=== PATIENT | male | born 1945 | race Caucasian/White ===

== ENCOUNTER 2018-05-31 10:41 | Emergency (ER) | payer OTHER ==
[~2018-05-31] VITALS: Ht 172.7 cm; Wt 96.2 kg
[~2018-05-31 10:41] MED LIST: DIABETA 1.25M1.25 M1 PO; GLUCOPHAGE1000 MG PO; LEVEMIR; LISINOPRIL10 MG PO; NEURONTIN 300300 M1 PO; NORVASC10 MG PO
[2018-05-31] MEDS ORDERED: NORCO 5-325 TA1 EACH PO (12:19)
[2018-05-31 12:36] VITALS: BP 119/52
== END 2018-05-31 12:39 | disposition home or self-care (01) ==
LOC: M.ERS 10:41
DX: S82.144A Nondisplaced bicondylar fracture of right tibia, initial encounter for closed fracture (principal); I10 Essential (primary) hypertension; E11.40 Type 2 diabetes mellitus with diabetic neuropathy, unspecified; W01.0XXA Fall on same level from slipping, tripping and stumbling without subsequent striking against object, initial encounter; Y93.89 Activity, other specified; Y92.89 Other specified places as the place of occurrence of the external cause; Y99.8 Other external cause status; Z79.899 Other long term (current) drug therapy

== ENCOUNTER → 2018-06-13 | Outpatient (CLI) | payer OTHER ==
[~2018-06-13] MED LIST changes: +NORCO 5-325 TA1 EACH PO
== END ==
LOC: M.CT 14:31
DX: M77.31 Calcaneal spur, right foot (principal); M25.861 Other specified joint disorders, right knee; M79.89 Other specified soft tissue disorders; E11.9 Type 2 diabetes mellitus without complications; I10 Essential (primary) hypertension

== ENCOUNTER 2018-10-08 18:26 | Emergency (ER) | payer OTHER ==
[~2018-10-08] VITALS: Ht 172.7 cm; Wt 99.8 kg
[2018-10-08] MEDS ORDERED: HUMALOG100 UNIT/1 SUBQ (18:39)
[2018-10-08] MEDS ORDERED: TRICOR145 MG PO (18:39)
[2018-10-08 19:24] LABS: URINE BILIRUBIN NEGATIVE (Negative); URINE BLOOD NEGATIVE (Negative); URINE CLARITY CLEAR; URINE COLOR YELLOW; URINE GLUCOSE-RANDOM 3+ (Negative); URINE KETONES NEGATIVE (Negative); URINE LEUKOCYTES-REFLEX NEGATIVE (Negative); URINE NITRITE-REFLEX NEGATIVE (Negative); URINE PROTEIN NEGATIVE (Negative); URINE SPECIFIC GRAVITY 1.015 (1.005-1.030)
[2018-10-08 19:39] LABS: ABSOLUTE BASOPHILS 0.1 thou/uL (0.0-0.2); ABSOLUTE EOSINOPHILS 0.5 thou/uL (0.0-0.7); ABSOLUTE LYMPHOCYTES 2.2 thou/uL (0.8-5.3); ABSOLUTE MONOCYTES 0.5 thou/uL (0.0-1.2); ABSOLUTE NEUTROPHILS 3.4 thou/uL (1.6-8.1); BASOPHILS 1.2 %; EOSINOPHILS 6.8 %; HEMATOCRIT 40.3 % (42.0-52.0); HEMOGLOBIN 13.8 gm/dL (14.0-18.0); LYMPHOCYTES 33.1 %; MCH 30.5 pg (26.0-34.0); MCHC 34.2 g/dL (28.0-37.0); MCV 89.2 fL (80.0-100.0); MONOCYTES 8.1 %; MPV 7.8 fl. (7.2-11.1); NUCLEATED RBCS 0 /100WBC; PLATELET COUNT* 365 thou/uL (150-400); POLYS 50.8 %; RBC 4.52 mil/uL (4.50-6.00); RDW-CV 13.9 % (10.5-14.5); WBC 6.7 thou/uL (4.0-11.0)
[2018-10-08 19:43] LABS: CALCIUM 8.4 mg/dL (8.5-10.1); CREATININE 1.3 mg/dL (0.6-1.3); POTASSIUM 4.4 mmol/L (3.5-5.1)
[2018-10-08 19:48] LABS: ALBUMIN 3.2 g/dL (3.4-5.0); MAGNESIUM 1.9 mg/dL (1.8-2.4); TOTAL BILIRUBIN 0.3 mg/dL (<0.1-1.0)
[2018-10-08 20:07] VITALS: BP 142/65
== END 2018-10-08 20:08 | disposition home or self-care (01) ==
LOC: M.ERS 18:26
PROVIDERS: Nurse Practitioner Family
DX: M79.18 Myalgia, other site (principal); I10 Essential (primary) hypertension; E11.40 Type 2 diabetes mellitus with diabetic neuropathy, unspecified; Z79.4 Long term (current) use of insulin

== ENCOUNTER 2019-08-04 19:52 | Inpatient (IN) | payer OTHER ==
[~2019-08-04] VITALS: Ht 172.7 cm; Wt 95.3 kg
[~2019-08-04 19:52] MED LIST changes: -DIABETA 1.25M1.25 M1 PO; +GLYBURIDE 5 MG T5 M1 PO; +HUMALOG100 UNIT/1 SUBQ; -LEVEMIR; +LEVEMIR100 UNIT/1 SUBQ; +TRICOR145 MG PO
[2019-08-04 20:00] VITALS: BP 157/68
[2019-08-04] MEDS ORDERED: FUROSEMIDE 20 M20 MG PO (20:03)
[2019-08-04 20:49] LABS: ABSOLUTE BASOPHILS 0.1 thou/uL (0.0-0.2); ABSOLUTE EOSINOPHILS 0.2 thou/uL (0.0-0.7); ABSOLUTE LYMPHOCYTES 1.8 thou/uL (0.8-5.3); ABSOLUTE MONOCYTES 0.6 thou/uL (0.0-1.2); ABSOLUTE NEUTROPHILS 3.8 thou/uL (1.6-8.1); BASOPHILS 1.1 %; EOSINOPHILS 2.8 %; HEMATOCRIT 37.8 % (42.0-52.0); HEMOGLOBIN 12.9 gm/dL (14.0-18.0); LYMPHOCYTES 27.8 %; MCH 29.9 pg (26.0-34.0); MCHC 34.1 g/dL (28.0-37.0); MCV 87.7 fL (80.0-100.0); MPV 7.9 fl. (7.2-11.1); NUCLEATED RBCS 0 /100WBC; PLATELET COUNT* 431 thou/uL (150-400); POLYS 59.3 %; RBC 4.31 mil/uL (4.50-6.00); RDW-CV 14.2 % (10.5-14.5); WBC 6.4 thou/uL (4.0-11.0)
[2019-08-04 20:58] LABS: CALCIUM 8.5 mg/dL (8.5-10.1); POTASSIUM 4.3 mmol/L (3.5-5.1)
[2019-08-04 21:00] LABS: PROTIME 9.9 Seconds (9.20-11.50)
[2019-08-04 21:03] LABS: ALBUMIN 3.1 g/dL (3.4-5.0); TOTAL BILIRUBIN 0.2 mg/dL (<0.1-1.0)
[2019-08-04 21:18] LABS: URINE BILIRUBIN NEGATIVE (Negative); URINE BLOOD NEGATIVE (Negative); URINE COLOR YELLOW; URINE GLUCOSE-RANDOM 3+ (Negative); URINE KETONES NEGATIVE (Negative); URINE PROTEIN NEGATIVE (Negative); URINE SPECIFIC GRAVITY 1.015 (1.005-1.030)
[2019-08-04 21:19] LABS: URINE CLARITY HAZY; URINE LEUKOCYTES-REFLEX 2+ (Negative); URINE NITRITE-REFLEX POSITIVE (Negative)
[2019-08-04 21:42] LABS: SQUAMOUS 0-3 Few /LPF (0-3); URINE WBC-REFLEX >25 Many /HPF (0-5)
[2019-08-04 21:43] LABS: CASTS None Seen /LPF (None Seen); CRYSTALS None Seen /LPF (None Seen); URINE RBC None Seen /HPF (0-2)
--- NOTE | 2019-08-04 23:43 | NUR ---
PT ADMITTED TO FLOOR PER CART ACCOMPANIED BY ER STAFF WITH BELONGINGS. ORIENTED TO ROOM AND CALL LITE. HISTORY OBTAINED AND ASSESSMENT PERFORMED, SEE ADMIT NOTES. RFA SL IV. DENIES NEED FOR PAIN MED AT THIS TIME. WILL CONTINUE TO MONITOR AND PROVIDE CARES NEEDED.CALL LITE IN EASY REACH.
[2019-08-04 23:45] VITALS: BP 138/61
[2019-08-04 23:50] VITALS: BP 130/59
--- NOTE | 2019-08-05 06:33 | NUR ---
NEW ADMIT OVERNIGHT, PT HAS RESTED WELL SINCE ADMIT. NO COMPLAINTS OF PAIN REQUIRING MEDICATION. RAC SL. NO LABS THIS MORNING. AOX4. UP INDEP TO BR TO VOID. ABLE TO USE CALL LITE AND MAKE NEEDS KNOWN.
[2019-08-05 08:00] VITALS: BP 149/59
--- NOTE | 2019-08-05 16:33 | NUR ---
SW met with pt to complete initial assessment, introduce self, and SW role. Pt alert, oriented, pleasant. Pt lives at home with and is active and independent. 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 Pt dtr Lacey is supportive. Pt does not express any dc needs. SW to remain available to assist with safe dc planning if needs arise.
[2019-08-05 16:50] VITALS: BP 103/76
--- NOTE | 2019-08-05 17:32 | NUR ---
PT A&OX4 VSS. PT CONTINUES TO TAKE MIRALAX W/ POSITIVE RESULTS. RENAL U/S SCHEDULED FOR TOMORROW. PT TO BE BLADDER SCANNED X3 THIS EVENING. IF 3RD SCAN IS GREATER THAN 250 ML, PAGE TO BE PLACED PER PHYSICIAN ORDER. PT RESTS IN BED WITH CALL LIGHT IN REACH. DENIES PAIN AT THIS TIME. IV ANTIBIOTICS TO ADDRESS DX OF UTI. PT DENIES PAIN AT THIS TIME. NO CONCERNS VOICED. WILL CONTINUE TO MONITOR.
[2019-08-05 19:45] VITALS: BP 123/72
[2019-08-06 04:38] LABS: HEMATOCRIT 36.8 % (42.0-52.0); HEMOGLOBIN 12.4 gm/dL (14.0-18.0); MCH 29.7 pg (26.0-34.0); MCHC 33.7 g/dL (28.0-37.0); MCV 88.1 fL (80.0-100.0); RBC 4.18 mil/uL (4.50-6.00); RDW-CV 14.4 % (10.5-14.5); WBC 6.3 thou/uL (4.0-11.0)
[2019-08-06 04:55] LABS: CALCIUM 8.3 mg/dL (8.5-10.1); CREATININE 1.4 mg/dL (0.6-1.3); POTASSIUM 4.3 mmol/L (3.5-5.1)
--- NOTE | 2019-08-06 05:55 | NUR ---
PT SLEPT ON AND OFF OVERNIGHT. UP AD ERIC IN ROOM, VOIDING PER URINAL FOR STAFF TO MEASURE. POST VOID RESIDUALS PERFORMED X3, 0500 VOIDED AMOUNT 500 WITH BLADDER SCAN OF 350. PT INFORMED OR ORDERS FOR PAGE CATHETER BUT REFUSED AT THIS TIME, WOULD LIKE TO DISCUSS IT WITH DR ACOSTA. EDUCATION GIVEN. PT AOX4, PLEASANT. RAC IVF INFUSING PER PUMP. RECEIVED MIRALAX EVERY 2 HOURS ORDERED-NO BMS THIS SHIFT, PT REPORTS PASSING GAS. HS ACCUCHECK 225, INSULIN GIVEN WITH SNACK. AM LABS. ABLE TO USE CALL LITE AND MAKE NEEDS KNOWN.
[2019-08-06 07:50] VITALS: BP 133/69
[2019-08-06 10:58] VITALS: BP 133/69
[2019-08-06] MEDS ORDERED: MIRALAX119 GM PO (11:47)
[2019-08-06] MEDS ORDERED: DOCUSATE SODIU100 M1 PO (11:48)
[2019-08-06] MEDS ORDERED: CIPRO500 M1 PO (11:51)
[2019-08-06 12:06] VITALS: BP 133/69
--- NOTE | 2019-08-06 12:55 | NUR ---
PT A&OX4 VSS. PT UP AD ERIC AND WALKING AROUND UNIT AT TIMES. GAIT STEADY. PT DENIES PAIN AT THIS TIME. PT DENIES DIFFICULTY URINATING AT THIS TIME. PT STATES UNDERSTANDING OF DC INSTRUCTIONS AND RX INFORMATION PROVIDED. PT IV DC'D PRIOR TO LEAVING UNIT. NO REDNESS/SWELLING NOTED AT SITE. PT LEAVES UNIT IN WC.
== END 2019-08-06 12:40 | disposition home or self-care (01) | DRG 689 ==
LOC: M.ERS 19:52 → M.TBA-ER 22:23 → M.3W 22:23
PROVIDERS: Emergency Medicine; Family Medicine; ADMIT Internal Medicine
DX: N39.0 Urinary tract infection, site not specified (principal); N17.0 Acute kidney failure with tubular necrosis; E78.5 Hyperlipidemia, unspecified; E66.9 Obesity, unspecified; I10 Essential (primary) hypertension; K59.00 Constipation, unspecified; E11.40 Type 2 diabetes mellitus with diabetic neuropathy, unspecified; Z79.899 Other long term (current) drug therapy; Z79.84 Long term (current) use of oral hypoglycemic drugs; Z90.49 Acquired absence of other specified parts of digestive tract; Z68.31 Body mass index [BMI] 31.0-31.9, adult

== ENCOUNTER → 2019-10-23 | Outpatient (CLI) | payer MEDICARE ==
[~2019-10-23] MED LIST changes: +CIPRO500 M1 PO; +DOCUSATE SODIU100 M1 PO; +FUROSEMIDE 20 M20 MG PO; +MIRALAX119 GM PO
== END ==
LOC: M.MRI 07:09
DX: M47.816 Spondylosis without myelopathy or radiculopathy, lumbar region (principal); M51.25 Other intervertebral disc displacement, thoracolumbar region; M51.26 Other intervertebral disc displacement, lumbar region; M48.061 Spinal stenosis, lumbar region without neurogenic claudication; M12.88 Other specific arthropathies, not elsewhere classified, other specified site; M46.06 Spinal enthesopathy, lumbar region

== ENCOUNTER 2020-03-17 16:51 | Inpatient (IN) | payer MEDICARE ==
[~2020-03-17] VITALS: Ht 170.2 cm; Wt 94.9 kg
[2020-03-17 17:02] VITALS: BP 169/85; BP 19/85
[2020-03-17 17:24] LABS: ABSOLUTE BASOPHILS 0.1 thou/uL (0.0-0.2); ABSOLUTE EOSINOPHILS 0.3 thou/uL (0.0-0.7); ABSOLUTE MONOCYTES 0.5 thou/uL (0.0-1.2); BASOPHILS 0.7 %; EOSINOPHILS 3.5 %; HEMATOCRIT 37.7 % (42.0-52.0); HEMOGLOBIN 13.2 gm/dL (14.0-18.0); MCH 31.2 pg (26.0-34.0); MCHC 35.1 g/dL (28.0-37.0); MONOCYTES 6.2 %; NUCLEATED RBCS 0 /100WBC; PLATELET COUNT* 360 thou/uL (150-400); POLYS 63.6 %; RBC 4.24 mil/uL (4.50-6.00); RDW-CV 14.3 % (10.5-14.5); WBC 7.8 thou/uL (4.0-11.0)
[2020-03-17 17:33] LABS: CALCIUM 8.1 mg/dL (8.5-10.1); CREATININE 1.7 mg/dL (0.6-1.3); INR 0.9; POTASSIUM 4.9 mmol/L (3.5-5.1); PROTIME 9.6 Seconds (9.20-11.50)
[2020-03-17 17:44] LABS: ALBUMIN 3.1 g/dL (3.4-5.0); TOTAL BILIRUBIN 0.3 mg/dL (<0.1-1.0); TOTAL PROTEIN 6.7 g/dL (6.4-8.2)
[2020-03-17 19:15] LABS: URINE BILIRUBIN NEGATIVE (Negative); URINE BLOOD NEGATIVE (Negative); URINE CLARITY CLEAR; URINE COLOR YELLOW; URINE GLUCOSE-RANDOM 1+ (Negative); URINE KETONES NEGATIVE (Negative); URINE LEUKOCYTES-REFLEX NEGATIVE (Negative); URINE NITRITE-REFLEX NEGATIVE (Negative); URINE PROTEIN NEGATIVE (Negative); URINE SPECIFIC GRAVITY 1.025 (1.005-1.030); URINE UROBILINOGEN 0.2 E.U./dl (0.2-1.0)
--- NOTE | 2020-03-17 22:14 | NUR ---
PATIENT STATES HE IS CONCERNED ABOUT HIS INSULIN ADMINISTRATION BECAUSE HIS BLOOD GLUCOSE WAS 178 AND THAT HE HAD NOT EATEN. PATIENT PROVIDED WITH FOOD AND FLUIDS PATIENT AGREED TO TAKE THE INSULIN AFTER HE ATE.
[2020-03-17 23:01] VITALS: BP 134/77
[2020-03-18 04:39] LABS: HEMATOCRIT 37.1 % (42.0-52.0); HEMOGLOBIN 12.7 gm/dL (14.0-18.0); MCH 30.6 pg (26.0-34.0); MCHC 34.2 g/dL (28.0-37.0); MCV 89.2 fL (80.0-100.0); MPV 8.1 fl. (7.2-11.1); RBC 4.15 mil/uL (4.50-6.00); RDW-CV 14.7 % (10.5-14.5); WBC 7.7 thou/uL (4.0-11.0)
[2020-03-18 05:00] LABS: ALBUMIN 2.9 g/dL (3.4-5.0); ALKALINE PHOSPHATASE 89 U/L (46-116); ANION GAP 8 mmol/L (7-16); BUN 25 mg/dL (7-18); CALCIUM 8.1 mg/dL (8.5-10.1); CHLORIDE 106 mmol/L (98-107); CHOLESTEROL 211 mg/dL (<200); CO2 24 mmol/L (21-32); CREATININE 1.6 mg/dL (0.6-1.3); GLUCOSE 86 mg/dL (70-99); HDL CHOLESTEROL 31 mg/dL (>40); MAGNESIUM 1.8 mg/dL (1.8-2.4); POTASSIUM 4.3 mmol/L (3.5-5.1); SGOT 11 U/L (15-37); SGPT 19 U/L (30-65); SODIUM 138 mmol/L (136-145); TC:HDL 6.8 Ratio (Not establshd); TOTAL BILIRUBIN 0.3 mg/dL (<0.1-1.0); TOTAL PROTEIN 6.4 g/dL (6.4-8.2); TRIGLYCERIDE 514 mg/dL (<150); VLDL 103 mg/dL (<40)
[2020-03-18 05:06] LABS: SERUM ASSESSMENT Clear
[2020-03-18 08:00] VITALS: BP 143/64
--- NOTE | 2020-03-18 10:16 | EKG ---
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 : 1945 Requested By: Hever Garcia Order Number: [id number] MD: Cruzito Bird Measurements Intervals [place] Rate: 69 P: ME: QRS: -63 QRSD: 145 T: -10 QT: 402 QTc: 431 Interpretive Statements Atrial fibrillation RBBB and LAFB Compared to ECG 11/20/2012 08:19:32 Left anterior fascicular block now present Right bundle-branch block now present Sinus rhythm no longer present Electronically Signed On 03-18-2020 10:15:47 CDT by Cruzito Bird [email or web address] <ELECTRONICALLY SIGNED> By: Cruzito Bird MD, FACC 03/18/20 1015 1704 1704 Cruzito Bird MD, [facility] /EPI
[2020-03-18 12:41] VITALS: BP 165/67
--- NOTE | 2020-03-18 15:31 | NUR ---
Pt is A&O. Resides at home with his . [employer]. No DME. No hx of HH. Hx of [facility] at [facility]. Rehab consulted. Per neuro, plan to observe for a few more days. Pt's goal is to return home at pr. Following.
--- NOTE | 2020-03-18 16:13 | 2DMMODE ---
[place] [address] 2 D/M-MODE ECHOCARDIOGRAM Name: VEE ROLLE Room: [address] IN M.R.#: [id number] Admission: 03/18/20 Attend Phys: Alyse Mcdaniel, Discharge: Date of : 41 Date of Service: 03/18/20 1612 Report #: [id number] THIS REPORT FOR: cc: Arjun Negro, Arjun Bird,Cruzito Zapata MD [facility] ~ APPROVED REPORT Study performed: 03/18/2020 12:52:21 EXAM: Comprehensive 2D, Doppler, and color-flow Echocardiogram Patient Location: In-Patient BSA: 2.11 HR: 62 bpm BP: 134/77 mmHg Other Information Study Quality: Fair Indications CVA/TIA Echo Enhancing Agent Indication: Rule out Shunt Agent(s) / Amount(s) Used: Agitated Saline cc 2D Dimensions IVSd: 15.22 (7-11mm) LVOT Diam: 19.51 (18-24mm) LVDd: 45.84 mm PWd: 12.95 (7-11mm) Ascending Ao: 30.15 (22-36mm) LVDs: 30.74 (25-40mm) Aortic Root: 28.89 mm Volumes Left Atrial Volume (Systole) LA ESV Index: 21.90 mL/m2 Aortic Valve AoV Peak Donald.: 1.41 m/s AO Peak Gr.: 7.97 mmHg LVOT Max P.87 mmHg AO Mean Gr.: 4.69 mmHg LVOT Mean P.12 mmHg LVOT Max V: 0.98 m/s AO V2 VTI: 31.90 cm LVOT Mean V: 0.69 m/[place] [address] 2 D/M-MODE ECHOCARDIOGRAM Name: VEE ROLLE Room: [address] IN ..#: [id number] Admission: 03/18/20 Attend Phys: Alyse Mcdaniel, Discharge: Date of : 41 Date of Service: 03/18/20 1612 Report #: [id number] AMANDA (VTI): 2.24 cm2 LVOT V1 VTI: 23.87 cm Mitral Valve E/A Ratio: 1.17 MV Decel. Time: 124.32 ms MV E Max Donald.: 0.81 m/s MV PHT: 36.05 ms MVA (PHT): 6.10 cm2 TDI E/Lateral E': 7.36 E/Medial E': 9.00 Medial E' Donald.: 0.09 m/s Lateral E' Donald.: 0.11 m/s Pulmonary Valve PV Peak Donald.: 0.92 m/s PV Peak Gr.: 3.41 mmHg Tricuspid Valve RAP Estimate: 5.00 mmHg TR Peak Gr.: 31.61 mmHg RVSP: 36.61 mmHg PA Pressure: 36.61 mmHg Left Ventricle The left ventricle is normal size. There is normal LV segmental wall motion. Mild concentric left ventricular hypertrophy. Left ventricular systolic function is normal. The left ventricular ejection fraction is within the normal range. LVEF is 60-65%. Right Ventricle The right ventricle is normal size. The right ventricular systolic function is normal. Atria The left atrium size is normal. Interatrial septum not well visualized. Injection of bubbles documented no interatrial shunt. The right atrium size is normal. Aortic Valve The Aortic valve is sclerotic. No aortic regurgitation is present. There is no aortic valvular stenosis. Mitral Valve Mitral valve leaflets are mildly thickened. Mild mitral regurgitation. No evidence of mitral valve stenosis. [place] [address] 2 D/M-MODE ECHOCARDIOGRAM Name: VEE ROLLE Jeronimo Room: [address] IN [facility]#: [id number] Admission: 03/18/20 Attend Phys: Alyse Mcdaniel, Discharge: Date of : 41 Date of Service: 03/18/20 1612 Report #: [id number] The tricuspid valve is normal in structure. Trace tricuspid regurgitation. estimated pa pressure 40 mm Hg Pulmonic Valve Pulmonic valve is not well visualized. There is no pulmonic valvular regurgitation. Great Vessels The aortic root is normal in size. IVC is not well visualized. Pericardium There is no pericardial effusion. <Conclusion> Mild concentric left ventricular hypertrophy. LVEF is 60-65%. Interatrial septum not well visualized. Injection of bubbles documented no interatrial shunt. The Aortic valve is sclerotic. Mild mitral regurgitation. Trace tricuspid regurgitation. estimated pa pressure 40 mm Hg <ELECTRONICALLY SIGNED> By: Cruzito Bird MD, FACC 03/18/20 161 161 11 Cruzito Bird MD, FACC /INF
[2020-03-18 19:45] VITALS: BP 116/43
[2020-03-19] VITALS: BP 138/54
[2020-03-19 04:12] LABS: GLYCOHEMOGLOBIN (HGB A1C) 7.9 % (4.8-5.6)
[2020-03-19 04:38] VITALS: BP 136/71
--- NOTE | 2020-03-19 04:48 | NUR ---
ASSUMED PT CARE AT 1915. NURSING ASSESSMENT COMPLETED THIS SHIFT. PT VOICED NO CONCERNS THIS SHIFT. SR/SB 1D AND BBB ON ELECTRONIC TECH. HOURLY ROUNDING COMPLETED. CPAP AT BEDSIDE FOR USE AT HS. CALL LIGHT WITHIN REACH.
[2020-03-19 08:00] VITALS: BP 136/64
--- NOTE | 2020-03-19 10:11 | NUR ---
Per PT, Pt is close to baseline and is safe to return home. PT recommending outpt, per Pt is has a $40 copay that he can't afford and he states that HH is a waste of time. Pt to dc to home, no needs.
[2020-03-19] MEDS ORDERED: FENOFIBRATE150 MG PO (12:32)
[2020-03-19 13:28] VITALS: BP 120/54
[2020-03-19] MEDS ORDERED: LIPITOR 40 MG T40 M1 PO (15:57)
[2020-03-19] MEDS ORDERED: PIOGLITAZONE15 MG PO (15:57)
[2020-03-19] MEDS ORDERED: ASPIRIN325 PO (15:57)
[2020-03-19 17:46] VITALS: BP 120/54
--- NOTE | 2020-03-24 12:39 | CON ---
[address] [address] CONSULTATION Name: VEE ROLLE Room: [address] IN M.R.#: [id number] Admission: 03/18/20 Attend Phys: Alyse Mcdaniel MD Discharge: 03/19/20 Date of : 41 Report #: [id number] THIS REPORT FOR: //name// cc: Arjun Negro Karl ~ THIS REPORT FOR: //name// CC: Arjun Mcdaniel DATE OF SERVICE: 03/18/2020 HISTORY OF PRESENT ILLNESS: A 74-year-old male patient who was evaluated by me for slurred speech. The patient was discussed with Dr. Mcdaniel. He provided history. He is getting an echocardiogram. His notes were reviewed and his imaging study was reviewed. The patient had some speech difficulty as well as ataxia. He was outside the window for any tPA as I understand when he came in. He has improved some, but he does not think he is back to his baseline. REVIEW OF SYSTEMS: Indicate he had hernia repair. He had a pretty massive back surgery after trauma. He had some surgery on his pelvis. So, looks like the right leg has been weak. He has a history of diabetes, hypertension, neuropathy, cholecystectomy. That was his relevant 14-point review of system. PAST MEDICAL HISTORY: Positive for stroke or TIA, but history is very poor in that regard. FAMILY HISTORY: Unremarkable. SOCIAL HISTORY: He does not smoke or drink any alcohol. PHYSICAL EXAMINATION: Indicates that he is alert, responsive, able to follow simple and complex command. His speech is somewhat slurred, but his neuromuscular examination is unremarkable except in the right leg, which is old and is because of trauma there. His cardiac and respiratory examination appears noncontributory. LABORATORY DATA: His GFR is somewhat low. His carotid Doppler is pending. 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 His MRA is clean. His carotid Doppler is pending. We will get an echo and he needs rehab consult. That is already ordered. He should be on a combination of aspirin and Plavix and we will evaluate rest of the workup. He may need to go to rehab, but he may need some spine workup to [place] [address] CONSULTATION Name: VEE ROLLE Room: [address]#: [id number] Admission: 03/18/20 Attend Phys: Alyse Mcdaniel MD Discharge: 03/19/20 Date of : 41 Report #: [id number] About 50 minutes of time was spent taking care of this patient today and majority of that time was spent coordinating and counseling. <ELECTRONICALLY SIGNED> By: Jose R Barnes MD 03/24/20 1239 1431 1911Pgiovanni Barnes MD /eitan
--- NOTE | 2020-03-25 14:05 | NUR ---
During P2P Dr April BHAGAT would not approve Inpatient rate but approved observation. After JUNIOR PROJECT COORDINATOR review and Discussion in Revenue Cycle Call, CBO to bill for Observation.
== END 2020-03-19 18:30 | disposition home or self-care (01) | DRG 66 ==
LOC: M.ERS 16:51 → M.2W 17:47 → M.TBA 17:47 → M.TBA-ER 21:26 → M.2W 22:33
PROVIDERS: Family Medicine; ADMIT Internal Medicine; ATTEND Internal Medicine
DX: I63.89 Other cerebral infarction (principal); I65.22 Occlusion and stenosis of left carotid artery; E11.40 Type 2 diabetes mellitus with diabetic neuropathy, unspecified; Z90.49 Acquired absence of other specified parts of digestive tract; Z79.899 Other long term (current) drug therapy; E88.09 Other disorders of plasma-protein metabolism, not elsewhere classified; E11.22 Type 2 diabetes mellitus with diabetic chronic kidney disease; I12.9 Hypertensive chronic kidney disease with stage 1 through stage 4 chronic kidney disease, or unspecified chronic kidney disease; N18.3 Chronic kidney disease, stage 3 (moderate)

== ENCOUNTER → 2020-08-31 | Outpatient (CLI) | payer MEDICARE ==
[~2020-08-31] MED LIST changes: +ASA81BEC PO; +ASPIRIN325 PO; +FENOFIBRATE150 MG PO; +LIPITOR 40 MG T40 M1 PO; +PIOGLITAZONE15 MG PO
[2020-08-31 10:35] LABS: ABSOLUTE EOSINOPHILS 0.4 thou/uL (0.0-0.7); ABSOLUTE LYMPHOCYTES 1.9 thou/uL (0.8-5.3); ABSOLUTE MONOCYTES 0.5 thou/uL (0.0-1.2); ABSOLUTE NEUTROPHILS 4.3 thou/uL (1.6-8.1); BASOPHILS 0.1 %; EOSINOPHILS 5.2 %; HEMATOCRIT 41.5 % (42.0-52.0); LYMPHOCYTES 26.8 %; MCH 30.1 pg (26.0-34.0); MCHC 33.8 g/dL (28.0-37.0); MONOCYTES 7.1 %; MPV 7.7 fl. (7.2-11.1); NUCLEATED RBCS 0 /100WBC; PLATELET COUNT* 318 thou/uL (150-400); POLYS 60.8 %; RBC 4.66 mil/uL (4.50-6.00); RDW-CV 14.3 % (10.5-14.5); WBC 7.1 thou/uL (4.0-11.0)
[2020-08-31 11:01] LABS: APTT 28.4 Seconds (25.0-31.3); PROTIME 10.3 Seconds (9.20-11.50)
[2020-08-31 11:04] LABS: ALBUMIN 3.5 g/dL (3.4-5.0); CALCIUM 8.4 mg/dL (8.5-10.1); CREATININE 1.4 mg/dL (0.6-1.3); POTASSIUM 4.4 mmol/L (3.5-5.1); TOTAL BILIRUBIN 0.5 mg/dL (<0.1-1.0); TOTAL PROTEIN 7.6 g/dL (6.4-8.2)
[2020-08-31 11:33] LABS: ESR (SEDRATE) 19 mm/hr (0-20)
== END ==
LOC: M.LAB 09:30
PROVIDERS: ATTEND Orthopaedic Surgery
DX: Z01.812 Encounter for preprocedural laboratory examination (principal); Z20.828 Contact with and (suspected) exposure to other viral communicable diseases; M17.11 Unilateral primary osteoarthritis, right knee

== ENCOUNTER 2020-09-06 09:33 | Observation (INO) | payer MEDICARE ==
[~2020-09-06] VITALS: Ht 170.2 cm; Wt 98.9 kg
--- NOTE | ~2020-09-06 | OP ---
[address] [address] OPERATIVE REPORT Name: JENNAJacquelynVEE Room: [address] IN M.R.#: [id number] Admission: 09/06/20 Attend Phys: Tori Larios Discharge: Date of : 41 Report #: [id number] THIS REPORT FOR: //name// cc: ANJUM NAVARRO Physician not on staff ~ CC: ANJUM NAVARRO Physician staff Miguel Kenny DICTATED BY: Mandeep Arellano DO DATE OF SERVICE: 09/06/2020 PREOPERATIVE DIAGNOSIS: Right knee degenerative joint disease. POSTOPERATIVE DIAGNOSIS: Right knee degenerative joint disease. PROCEDURE: Right total knee arthroplasty. IMPLANTS: Biomet Vanguard total knee system utilizing the following components: 1. Size 67.5 mm right CR cemented femur. 2. Size 79 mm cemented tibial plate. 3. 34 mm asymmetrical cemented patella. 4. A 10 mm Vivacit-E anterior stabilized poly. 5. Two bags of Biomet cement. SURGEON: Miguel Busch DO ASSISTANTS: 1. Janae Noriega PA-C 2. Mandeep Arellano DO ANESTHESIA: General and regional block by Anesthesia. FLUIDS: Crystalloid per Anesthesia. ESTIMATED BLOOD LOSS: 200 mL. DRAINS: None. SPECIMENS: None. COMPLICATIONS: None. CONDITION: Stable to PACU. [address] [address] OPERATIVE REPORT Name: VEE ROLLE Room: [address] IN [facility]#: [id number] Admission: 09/06/20 Attend Phys: Tori Larios Discharge: Date of : 41 Report #: [id number] DISPOSITION: Recovery in PACU and transferred to the floor. ANTIBIOTICS: 2 grams Ancef IV preop. TOURNIQUET: 15 minutes at 250 mmHg. INDICATIONS: The patient is a very pleasant 75-year-old male with end-stage osteoarthritis of the right knee. His pain was affecting his activities of daily living. We discussed total knee arthroplasty as he had failed conservative measures. The risks, benefits, alternatives and complications were discussed at length and he is agreeable to proceed. DESCRIPTION OF PROCEDURE: The patient was met in the preoperative area. The correct site was marked. He was transferred to the operative suite after obtaining informed consent, both verbally and written. He was placed supine on the operative table. He was given the benefit of general anesthesia. The right lower extremity was then prepped and draped in normal sterile fashion. Timeout was performed to identify the correct patient, procedure and operative site. All in the room were in agreement. The procedure began with an anterior midline incision. Sharp dissection was carried down to the level of the capsule, at which point a new knife was used to perform a standard medial parapatellar arthrotomy. The patella was then everted and the knee was hyperflexed. The drill was used to gain access to the intramedullary canal of the femur. The intramedullary cutting guide was then placed and secured in place. The distal femur cut was then made, taking 2 extra millimeters given a flexion contracture. We then turned our attention to the proximal tibial cut. The extramedullary tibial guide was placed, aligning this with the tibial crest in the center of the proximal tibia and the center of the talus and the second ray. Appropriate slope was dialed in. We then made our proximal tibial cut. The 10 block was then placed and showed adequate balance in extension. We did at this point, plan for a medial release with an 18-gauge needle, which was done after the femur bone cuts were made. We then used the AP sizer to sized the femoral component. The correct cutting block was placed and secured, after which we made our anterior, posterior and chamfer cuts. The trial tibia was malleted into place with the correct rotation using the alignment a drop dayday. We then placed the trial femur. The 10 poly trial was placed and found to have good balance with flexion and extension and good range of motion. There is full extension. We performed a small release with an 18-gauge needle by crusting the MCL. This was then determined to have good balance in flexion and extension. There was no instability. We then cut the patella in freehand fashion. This was then sized and drilled. We then drilled the 2 pegs for the femur. The trial components were removed except for the tibial component, which were used for the reamer and keel punch. Trial components were then removed. We elevated the tourniquet at this point, for about 15 minutes due to need for blood control. We then thoroughly irrigated the bony ends. [place] [address] OPERATIVE REPORT Name: VEE ROLLE Room: [address] IN M.R.#: [id number] Admission: 09/06/20 Attend Phys: Tori Larios Discharge: Date of : 41 Report #: [id number] injected. Cement was mixed on the back table with 1 gram of vancomycin powder mixed in. Cement was placed on the backside of the final components and on the bony ends. This was pressed into the interstices. We then placed all final components including the tibia, femur, and patellar button. The 10 trial poly was found to have good range of motion and balance. We then elected to place the final size 10 anterior stabilized poly. The bar was placed with the tray bar branch assistant. This was confirmed to be in place with a palpable and audible click. The knee was then placed in 90 degrees of flexion. The wound was then thoroughly irrigated. We then closed the capsule with #1 Vicryl in ijwczw-[id number] fashion followed by a #1 Stratafix running. We then used 2-0 Monocryl in simple interrupted inverted fashion to reapproximate the dermal tissue followed by a 3-0 Stratafix and the subcuticular tissue. We then applied Exofin glue and a sterile Mepilex dressing, SUNG hose and calf pumps were applied. He was transferred to the PACU in stable condition after being extubated by anesthesia. All needle and sponge counts were correct x 2 at the end of the case. Dr. Busch was present and scrubbed throughout all critical aspects of the case. By: [id number] Busch DO /nt
[2020-09-06 15:09] VITALS: BP 139/74
[2020-09-07] VITALS (7 sets, daily range): BP systolic 90–150; BP diastolic 37–70
[2020-09-07 05:22] LABS: HEMATOCRIT 27.6 % (42.0-52.0); HEMOGLOBIN 9.6 gm/dL (14.0-18.0); MCH 30.7 pg (26.0-34.0); MCHC 34.7 g/dL (28.0-37.0); MCV 88.7 fL (80.0-100.0); RBC 3.11 mil/uL (4.50-6.00); RDW-CV 14.1 % (10.5-14.5); WBC 10.5 thou/uL (4.0-11.0)
[2020-09-07 05:38] LABS: ALBUMIN 2.1 g/dL (3.4-5.0); CALCIUM 7.4 mg/dL (8.5-10.1); CREATININE 1.8 mg/dL (0.6-1.3); MAGNESIUM 1.6 mg/dL (1.8-2.4); POTASSIUM 4.5 mmol/L (3.5-5.1); TOTAL BILIRUBIN 0.3 mg/dL (<0.1-1.0); TOTAL PROTEIN 4.4 g/dL (6.4-8.2)
[2020-09-07 12:25] LABS: URINE BILIRUBIN NEGATIVE (Negative); URINE BLOOD NEGATIVE (Negative); URINE CLARITY CLEAR; URINE COLOR YELLOW; URINE GLUCOSE-RANDOM 2+ (Negative); URINE KETONES NEGATIVE (Negative); URINE LEUKOCYTES-REFLEX NEGATIVE (Negative); URINE NITRITE-REFLEX NEGATIVE (Negative); URINE PROTEIN NEGATIVE (Negative); URINE UROBILINOGEN 0.2 E.U./dl (0.2-1.0)
[2020-09-08 02:06] LABS: GLYCOHEMOGLOBIN (HGB A1C) 7.9 % (4.8-5.6)
[2020-09-08 05:23] LABS: HEMATOCRIT 29.2 % (42.0-52.0); MCH 30.1 pg (26.0-34.0); MCHC 34.1 g/dL (28.0-37.0); MCV 88.3 fL (80.0-100.0); MPV 7.9 fl. (7.2-11.1); RBC 3.31 mil/uL (4.50-6.00); RDW-CV 14.3 % (10.5-14.5); WBC 7.6 thou/uL (4.0-11.0)
[2020-09-08 05:38] LABS: CALCIUM 8.3 mg/dL (8.5-10.1); CREATININE 1.6 mg/dL (0.6-1.3); POTASSIUM 4.4 mmol/L (3.5-5.1)
[2020-09-08 05:40] LABS: ALBUMIN 2.6 g/dL (3.4-5.0); CALCIUM 8.4 mg/dL (8.5-10.1); CREATININE 1.5 mg/dL (0.6-1.3); PHOSPHORUS* 2.7 mg/dL (2.5-4.9); POTASSIUM 4.4 mmol/L (3.5-5.1)
[2020-09-08 07:25] VITALS: BP 156/48
[2020-09-08 12:37] VITALS: BP 130/70
[2020-09-08] MEDS ORDERED: CLARITIN10 M2 PO (14:06)
[2020-09-08] MEDS ORDERED: ELIQUIS5 MG PO (14:07)
[2020-09-08] MEDS ORDERED: OXYCODONE HCL 55 MG PO (14:08)
[2020-09-08] MEDS ORDERED: ASPIRIN325 PO (14:09)
[2020-09-08 14:11] VITALS: BP 130/70
[2020-09-08 15:16] VITALS: BP 130/70
--- NOTE | 2020-09-09 09:27 | CON ---
[address] [address] CONSULTATION Name: VEE ROLLE Room: [address] Juan Jose Bentley#: [id number] Admission: 09/06/20 Attend Phys: Tori Larios Discharge: 09/08/20 Date of : 41 Report #: [id number] THIS REPORT FOR: cc: ANJUM NAVARRO Physician not on staff ~ Nadya Durand MD DATE OF SERVICE: 09/08/2020 NEPHROLOGY CONSULTATION CONSULTING PHYSICIAN: Dr. Loredo. REASON FOR NEPHROLOGY CONSULTATION: Elevated creatinine. REASON FOR ADMISSION: Right knee DJD. HISTORY OF PRESENT ILLNESS: This is a 75-year-old male who has a history of diabetes type 2, dyslipidemia and hypertension, who came in for right knee surgery. He underwent right total knee arthroplasty on 09/06/2020 and has been doing well from that perspective. His creatinine was 1.8 on admission and 1.6 today and his baseline creatinine is 1.4-1.6. 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 He has no complaints at the moment. He does use NSAID intermittently at home. ALLERGIES: No known allergies. REVIEW OF SYSTEMS: As mentioned in the history of present illness, otherwise 10-point review of systems done, negative. HOME MEDICATIONS: Include atorvastatin, Actos, metformin, furosemide, fenofibrate, glyburide, insulin detemir, aspirin 81 and Levemir. PAST MEDICAL AND SURGICAL HISTORY: Includes hernia repair, right knee surgery, back surgery, right wrist surgery, broken pelvis, diabetes mellitus type 2, hypertension, neuropathy, chronic kidney disease stage 3B, laparoscopic cholecystectomy. FAMILY HISTORY: Hypertension. SOCIAL HISTORY: Does not smoke, drink alcohol or use illicit drugs and lives at home. PHYSICAL EXAMINATION: VITAL SIGNS: His blood pressure is 156/48, respiratory rate is 18, [place] [address] CONSULTATION Name: VEE ROLLE Room: [address]#: [id number] Admission: 09/06/20 Attend Phys: Tori Larios Discharge: 09/08/20 Date of : 41 Report #: [id number] is 78, temperature 36.8 and pulse ox 97% on room air. GENERAL: He is awake, alert, oriented x 3. HEAD AND EYES: Atraumatic and normocephalic. Conjunctivae normal. EARS, NOSE, AND THROAT: Normal ears and nose. Mucous membranes are moist. NECK: No JVD. CHEST: Bilaterally clear to auscultation. No crackles or wheezing. CARDIOVASCULAR SYSTEM: S1, S2 normal. No murmurs. ABDOMEN: Soft, nondistended, nontender. Bowel sounds are present. LOWER EXTREMITIES: They are wrapped. 1+ edema bilateral ankles. NEUROLOGICAL FUNCTION: Grossly intact. PSYCHIATRIC: Mood and affect seem to be normal. LABORATORY DATA: Hemoglobin is 10.0. Creatinine was 1.6. Sodium was 138, potassium was 4.4. Other labs are reviewed. IMAGING: Renal ultrasound and chest x-ray was reviewed. ASSESSMENT: 1. Chronic kidney disease stage 3B, baseline creatinine 1.4-1.6 and basically the creatinine is at baseline 1.6 today. This is likely because of diabetes type 2. UA showed no protein or no blood, but just 2+ glucose. Renal ultrasound just showed evidence of chronic kidney disease. 2. Right knee degenerative joint disease, status post right total knee arthroplasty on 09/06/2020. The patient is doing good from that perspective. 3. Diabetes type 2 as per primary team. 4. Hypertension. Blood pressure seems to be controlled. 5. Dyslipidemia as per primary team. PLAN: 1. His creatinine is at baseline, we will restart his Lasix 20 mg a day. 2. Nothing else to add from nephrology standpoint right now, so I will be signing off. The patient has been asked to follow up with us and I have given him my information. The patient should follow up with us in 3-4 weeks after discharge. Thank you for this consultation. <ELECTRONICALLY SIGNED> By: Nadya Durand MD 09/09/20 0927 0944 1009Adevi Durand MD /nt
== END 2020-09-08 17:50 | disposition home or self-care (01) ==
LOC: M.ORTHSURG → M.TBA 09:42 → M.ORTHSURG 10:20 → M.TBA 13:57 → M.3W 19:30
PROVIDERS: Family Medicine; Internal Medicine; Orthopaedic Surgery; ADMIT Internal Medicine; ATTEND Internal Medicine
DX: M17.11 Unilateral primary osteoarthritis, right knee (principal); I12.9 Hypertensive chronic kidney disease with stage 1 through stage 4 chronic kidney disease, or unspecified chronic kidney disease; E11.22 Type 2 diabetes mellitus with diabetic chronic kidney disease; N18.9 Chronic kidney disease, unspecified; E83.42 Hypomagnesemia; D64.9 Anemia, unspecified; E46 Unspecified protein-calorie malnutrition; Z79.899 Other long term (current) drug therapy; Z23 Encounter for immunization

== ENCOUNTER 2020-12-01 14:36 | Emergency (ER) | payer OTHER ==
[~2020-12-01] VITALS: Ht 170.2 cm; Wt 97.5 kg
[~2020-12-01 14:36] MED LIST changes: +CLARITIN10 M2 PO; +ELIQUIS5 MG PO; +OXYCODONE HCL 55 MG PO
[2020-12-01 15:00] LABS: ABSOLUTE BASOPHILS 0.1 thou/uL (0.0-0.2); ABSOLUTE EOSINOPHILS 0.4 thou/uL (0.0-0.7); ABSOLUTE MONOCYTES 0.6 thou/uL (0.0-1.2); ABSOLUTE NEUTROPHILS 6.1 thou/uL (1.6-8.1); BASOPHILS 1.3 %; HEMATOCRIT 38.5 % (42.0-52.0); HEMOGLOBIN 12.8 gm/dL (14.0-18.0); LYMPHOCYTES 21.6 %; MCH 28.9 pg (26.0-34.0); MCHC 33.1 g/dL (28.0-37.0); MCV 87.4 fL (80.0-100.0); MPV 7.6 fl. (7.2-11.1); NUCLEATED RBCS 0 /100WBC; PLATELET COUNT* 369 thou/uL (150-400); POLYS 66.1 %; RDW-CV 14.4 % (10.5-14.5); WBC 9.2 thou/uL (4.0-11.0)
[2020-12-01 15:08] LABS: CALCIUM 8.8 mg/dL (8.5-10.1); CREATININE 1.5 mg/dL (0.6-1.3); POTASSIUM 4.5 mmol/L (3.5-5.1)
[2020-12-01 15:13] LABS: ALBUMIN 3.2 g/dL (3.4-5.0); TOTAL BILIRUBIN 0.4 mg/dL (<0.1-1.0)
[2020-12-01 17:21] LABS: URINE BILIRUBIN NEGATIVE (Negative); URINE BLOOD NEGATIVE (Negative); URINE CLARITY CLEAR; URINE COLOR YELLOW; URINE GLUCOSE-RANDOM NEGATIVE (Negative); URINE KETONES TRACE (Negative); URINE LEUKOCYTES NEGATIVE (Negative); URINE NITRITE NEGATIVE (Negative); URINE PROTEIN 2+ (Negative)
[2020-12-01 17:36] LABS: HYALINE CASTS 0-3 Few /LPF (None Seen); MUCUS None Seen strn/LPF (None Seen); SQUAMOUS 0-3 Few /LPF (0-3)
[2020-12-01 17:37] LABS: BACTERIA None Seen /HPF (None Seen); CRYSTALS None Seen /LPF (None Seen); URINE RBC None Seen /HPF (0-2); URINE WBC 0-5 Rare /HPF (0-5)
[2020-12-01 17:53] VITALS: BP 151/75
--- NOTE | 2020-12-02 11:04 | EKG ---
[place] [address] ELECTROCARDIOGRAM REPORT Name: VEE ROLLE Room: [facility]#: [id number] Admission: 12/01/20 Attend Phys: Discharge: 12/01/20 Date of : 41 Date of Service: 12/01/20 1500 Report #: [id number] THIS REPORT FOR: //name// 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1945 Requested By: Narciso Faustin Order Number: [id number] MD: Cruzito Bird Measurements Intervals [place] Rate: 76 P: 34 ME: 203 QRS: -80 QRSD: 143 T: 22 QT: 390 QTc: 439 Interpretive Statements Sinus rhythm RBBB and LAFB Compared to ECG 03/17/2020 17:04:08 Atrial fibrillation no longer present Electronically Signed On 12-02-2020 11:04:09 REIMBURSEMENT REP by Cruzito Bird [email or web address] <ELECTRONICALLY SIGNED> By: Cruzito Bird MD, [facility] 12/02/20 1104 1500 1500 Cruzito Bird MD, [facility] /EPI
== END 2020-12-01 17:53 | disposition home or self-care (01) ==
LOC: M.ERS 14:36
PROVIDERS: Physician Assistant
DX: R53.1 Weakness (principal); E11.40 Type 2 diabetes mellitus with diabetic neuropathy, unspecified; I10 Essential (primary) hypertension; Z90.49 Acquired absence of other specified parts of digestive tract; Z86.73 Personal history of transient ischemic attack (TIA), and cerebral infarction without residual deficits; Z79.4 Long term (current) use of insulin